=== PATIENT | female | born 1985 | race Caucasian/White ===

== ENCOUNTER 2016-03-04 18:03 | Emergency (ER) | payer OTHER ==
[~2016-03-04] VITALS: Ht 160 cm; Wt 65.8 kg
[~2016-03-04 18:03] MED LIST: FERROUS SULFAT200 M1; MOTRIN400 MG PO; PERCOCET 5/3251 EACH PO
--- NOTE | 2016-03-04 18:13 | Emergency Room Report ---
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 Y Clinical Suspician of Infection? N Mental Status: 1 - Regular (Normal Baseline) Sepsis Risk:Severe Sepsis Risk Have you (or family members/close friends) recently traveled outside the [place]? N If Yes, where/when: Have you had exposure to infectious disease within the past month? TB? Other? Specify: ALLERGIES Uncoded Allergies: PCN (Mild, 03/04/16) Home Medications Active Scripts Ibuprofen (Motrin) 400 MG PO Q4HP #40 TAB Prov: 03/08/12 Oxycodone 5MG/[id number] (Oxycodone-Acetaminophen 5-325) 1-2 TAB PO Q4HP #30 TAB Prov: 03/08/12 Reported Medications Ferrous Sulfate History Medical History General Angina: No [place]: No Hypertension? No Hyperlipidemia? No CHF? No COPD? No Asthma? No CVA? No Seizures? Yes Diabetes? No GB Disease: No MRSA? No TB? No Cancer? 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/A Social History Smoking Hx Smoker: Former Smoker Tobacco: No Type N/A Are you/the child exposed to second-hand smoke: No Alcohol Alcohol: No Physical Exam Vital Signs Vital Signs Date Time Temp Pulse Resp B/P Pulse O2 O2 Flow FiO2 Ox Delivery Rate 03/04 1807 99.8 121 18 123/79 99 Medical Decision Making LABS/Meds/Orders Results/Orders Current Medication Orders Sig/Rajan Start time Last Medication Dose Route Stop Time Status Admin Promethazine HCl 0 .STK-MED ONE 03/04 1816 DC .ROUTE Sodium Chloride 1,000 ML .STK-MED ONE 03/04 1816 DC IV Departure Departure Condition STABLE Referrals Lelia HARMON,Jacinto (PCP)
--- NOTE | 2016-03-04 18:13 | Emergency Room Report ---
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 Y Clinical Suspician of Infection? N Mental Status: 1 - Regular (Normal Baseline) Sepsis Risk:Severe Sepsis Risk Have you (or family members/close friends) recently traveled outside the [place]? N If Yes, where/when: Have you had exposure to infectious disease within the past month? TB? Other? Specify: ALLERGIES Uncoded Allergies: PCN (Mild, 03/04/16) Home Medications Active Scripts Ibuprofen (Motrin) 400 MG PO Q4HP #40 TAB Prov: 03/08/12 Oxycodone 5MG/[id number] (Oxycodone-Acetaminophen 5-325) 1-2 TAB PO Q4HP #30 TAB Prov: 03/08/12 Reported Medications Ferrous Sulfate History Medical History General Angina: No [place]: No Hypertension? No Hyperlipidemia? No CHF? No COPD? No Asthma? No CVA? No Seizures? Yes Diabetes? No GB Disease: No MRSA? No TB? No Cancer? 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 Social History Smoking Hx Smoker: Former Smoker Tobacco: No Type N/A Are you/the child exposed to second-hand smoke: No Alcohol Alcohol: No Physical Exam Vital Signs Vital Signs Date Time Temp Pulse Resp B/P Pulse O2 O2 Flow FiO2 Ox Delivery Rate 03/04 1807 99.8 121 18 123/79 99 Medical Decision Making LABS/Meds/Orders Results/Orders Current Medication Orders Sig/Rajan Start time Last Medication Dose Route Stop Time Status Admin Promethazine HCl 0 .STK-MED ONE 03/04 1816 DC .ROUTE Sodium Chloride 1,000 ML .STK-MED ONE 03/04 1816 DC IV Departure Departure Condition STABLE Referrals Lelia HARMON,Jacinto (PCP)
[2016-03-04] MEDS ORDERED: PROMETHAZINE HC25 M1 PO (18:34)
--- NOTE | 2016-03-04 18:37 | Emergency Room Report ---
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 Y Clinical Suspician of Infection? N Mental Status: 1 - Regular (Normal Baseline) Sepsis Risk:Severe Sepsis Risk Have you (or family members/close friends) recently traveled outside the [place]? N If Yes, where/when: Have you had exposure to infectious disease within the past month? TB? Other? Specify: Source patient Exam Limitations no limitations Comment Patient presents to ER with complaints of nausea, vomiting and diarrhea since 5AM this morning. States that her son has the same symptoms and began vomiting approximately two hours before her. Her boyfriend is here being seen as well with the same symptoms and he started vomiting approximately two hours after her. She reports that she has been unable to keep any liquids done at all today. Has headache, bodyaches, and chills, but denies any URI symptoms. Timing/Duration this morning Severity moderate Modifying Factors Worsens With: eating. 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 Y Clinical Suspician of Infection? N Mental Status: 1 - Regular (Normal Baseline) Sepsis Risk:Severe Sepsis Risk Have you (or family members/close friends) recently traveled outside the [place]? N If Yes, where/when: Have you had exposure to infectious disease within the past month? TB? Other? Specify: (Ervin HARMON,Maddy) History Medical History General Angina: No [place]: No Hypertension? No Hyperlipidemia? No CHF? No COPD? No Asthma? No CVA? No Seizures? Yes Diabetes? No GB Disease: No MRSA? No TB? No Cancer? 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 Social History Smoking Hx Smoker: Former Smoker Tobacco: No Type N/A Are you/the child exposed to second-hand smoke: No Alcohol Alcohol: No (TALITA TOWNSEND) Review of Systems All Other Systems Reviewed and Negative Constitutional weakness Gastrointestinal denies abdominal pain, denies constipation, diarrhea, nausea, vomiting Musculoskeletal other (body aches) (TALITA TOWNSEND) Physical Exam Vital Signs Vital Signs Date Time Temp Pulse Resp B/P Pulse O2 O2 Flow FiO2 Ox Delivery Rate 03/04 1935 99.0 115 18 133/74 98 03/04 1934 99.0 115 18 133/74 98 03/04 1807 99.8 121 18 123/79 99 General Appearance normal appearance, WD/WN Eye Exam - bilateral eye normal exam, bilateral eye PERRL, bilateral eye EOMI Ear, Nose, Throat hearing grossly normal, normal ENT inspection Neck normal inspection, non-tender, supple, full range of motion Respiratory Status No: respiratory distress. Lung Sounds bilateral: normal breath sounds, lungs clear. 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 No Results/Orders Laboratory Tests 03/04/161837: Influenza Type A Ag NOT DETECTED, Influenza Type B Ag NOT DETECTED Orders Procedure Date/time Status IV SALINE LOCK 03/04 1842 Active INFLUENZA A&B ANTIGENS 03/04 1837 Complete Progress ED Progress Notes Comment 1850 patient is sound asleep, reports that she is feeling much better, nausea has been relieved by promethazine. 1919 Patient still sleeping soundly. Denies nausea. VS improved BP 133/78, pulse 115, temp 99.0 (TALITA TOWNSEND) LABS/Meds/Orders Pt receiving controlled substance in ED? No (Maddy Mueller MD) Departure Departure Time of Disposition 1924 Disposition DC Home or Self Care(routine) Clinical Impression Primary Impression: Gastroenteritis Secondary Impressions: Diarrhea Qualifiers: Diarrhea type: unspecified type Qualified Code: R19.7 - Diarrhea, unspecified Nausea and vomiting in adult patient Condition STABLE Referrals Jacinto Rowell MD (Family) Patient Instructions DI for Diarrhea and Traveler's Diarrhea -- Adult, DI for Nausea -- Adult Additional Instructions Increase fluids, sipping initially. [place]/BRATTY diet as tolerated once able to eat. F/U with PCP if symptoms return. Discharge Counseling Counseled pt/family regarding diagnosis, test results, medications/RX, home care Prescriptions Current Visit Scripts PROMETHAZINE HCL (Promethazine 25mg Tab) 25 MG PO Q6HP PRN N/V #15 TAB ED Critical Care Critical Care No Comments Increase fluids, sipping initially. [place]/BRATTY diet as tolerated once able to eat. F/U with PCP if symptoms return. (TALITA TOWNSEND) Departure ED Critical Care Critical Care No If Critical Care minutes are documented, the time involved in the performance of seperately reportable procedures was not counted toward critical care time documented. I directly delivered medical care to this critically ill and/or injured patient. Timely evaluation and treatment was necessary to address the significant organ system(s) dysfunction present in this patient. (Maddy Mueller MD) at 1925 at [id number]
--- NOTE | 2016-03-04 18:37 | Emergency Room Report ---
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 Y Clinical Suspician of Infection? N Mental Status: 1 - Regular (Normal Baseline) Sepsis Risk:Severe Sepsis Risk Have you (or family members/close friends) recently traveled outside the [place]? N If Yes, where/when: Have you had exposure to infectious disease within the past month? TB? Other? Specify: Source patient Exam Limitations no limitations Comment Patient presents to ER with complaints of nausea, vomiting and diarrhea since 5AM this morning. States that her son has the same symptoms and began vomiting approximately two hours before her. Her boyfriend is here being seen as well with the same symptoms and he started vomiting approximately two hours after her. She reports that she has been unable to keep any liquids done at all today. Has headache, bodyaches, and chills, but denies any URI symptoms. Timing/Duration this morning Severity moderate Modifying Factors Worsens With: eating. 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 Y Clinical Suspician of Infection? N Mental Status: 1 - Regular (Normal Baseline) Sepsis Risk:Severe Sepsis Risk Have you (or family members/close friends) recently traveled outside the [place]? N If Yes, where/when: Have you had exposure to infectious disease within the past month? TB? Other? Specify: (Ervin HARMON,Maddy) History Medical History General Angina: No [place]: No Hypertension? No Hyperlipidemia? No CHF? No COPD? No Asthma? No CVA? No Seizures? Yes Diabetes? No GB Disease: No MRSA? No TB? No Cancer? 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 Social History Smoking Hx Smoker: Former Smoker Tobacco: No Type N/A Are you/the child exposed to second-hand smoke: No Alcohol Alcohol: No (TALITA TOWNSEND) Review of Systems All Other Systems Reviewed and Negative Constitutional weakness Gastrointestinal denies abdominal pain, denies constipation, diarrhea, nausea, vomiting Musculoskeletal other (body aches) (TALITA TOWNSEND) Physical Exam Vital Signs Vital Signs Date Time Temp Pulse Resp B/P Pulse O2 O2 Flow FiO2 Ox Delivery Rate 03/04 1935 99.0 115 18 133/74 98 03/04 1934 99.0 115 18 133/74 98 03/04 1807 99.8 121 18 123/79 99 General Appearance normal appearance, WD/WN Eye Exam - bilateral eye normal exam, bilateral eye PERRL, bilateral eye EOMI Ear, Nose, Throat hearing grossly normal, normal ENT inspection Neck normal inspection, non-tender, supple, full range of motion Respiratory Status No: respiratory distress. Lung Sounds bilateral: normal breath sounds, lungs clear. 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 No Results/Orders Laboratory Tests 03/04/161837: Influenza Type A Ag NOT DETECTED, Influenza Type B Ag NOT DETECTED Orders Procedure Date/time Status IV SALINE LOCK 03/04 1842 Active INFLUENZA A&B ANTIGENS 03/04 1837 Complete Progress ED Progress Notes Comment 1850 patient is sound asleep, reports that she is feeling much better, nausea has been relieved by promethazine. 1919 Patient still sleeping soundly. Denies nausea. VS improved BP 133/78, pulse 115, temp 99.0 (TALITA TOWNSEND) LABS/Meds/Orders Pt receiving controlled substance in ED? No (Maddy Mueller MD) Departure Departure Time of Disposition 1924 Disposition DC Home or Self Care(routine) Clinical Impression Primary Impression: Gastroenteritis Secondary Impressions: Diarrhea Qualifiers: Diarrhea type: unspecified type Qualified Code: R19.7 - Diarrhea, unspecified Nausea and vomiting in adult patient Condition STABLE Referrals Jacinto Rwoell MD (Family) Patient Instructions DI for Diarrhea and Traveler's Diarrhea -- Adult, DI for Nausea -- Adult Additional Instructions Increase fluids, sipping initially. [place]/BRATTY diet as tolerated once able to eat. F/U with PCP if symptoms return. Discharge Counseling Counseled pt/family regarding diagnosis, test results, medications/RX, home care Prescriptions Current Visit Scripts PROMETHAZINE HCL (Promethazine 25mg Tab) 25 MG PO Q6HP PRN N/V #15 TAB ED Critical Care Critical Care No Comments Increase fluids, sipping initially. [place]/BRATTY diet as tolerated once able to eat. F/U with PCP if symptoms return. (TALITA TOWNSEND) Departure ED Critical Care Critical Care No If Critical Care minutes are documented, the time involved in the performance of seperately reportable procedures was not counted toward critical care time documented. I directly delivered medical care to this critically ill and/or injured patient. Timely evaluation and treatment was necessary to address the significant organ system(s) dysfunction present in this patient. (Maddy Mueller MD) at 1925 at [phone]
[2016-03-04 19:36] VITALS: BP 133/74
== END 2016-03-04 19:36 | disposition home or self-care (01) ==
LOC: ER 18:03
DX: K52.9 Noninfective gastroenteritis and colitis, unspecified (principal); Z87.891 Personal history of nicotine dependence